=== PATIENT | male | born 1950 | race Caucasian/White ===

== ENCOUNTER 2018-06-08 15:00 | Inpatient (IN) | payer MEDICARE, OTHER ==
[2018-06-08] MEDS ORDERED: Piperacillin/Tazobactam 4.5 GM VIAL ONE (15:20)
[2018-06-08] MEDS ORDERED: Lidocaine 1% w/Epinephrine 1:100K 20 ML VIAL ONE (15:29)
[2018-06-08] MEDS ORDERED: Haloperidol Lactate 5 MG/ML VIAL ONE (15:40)
[2018-06-08] MEDS ORDERED: Vancomycin HCl 1.5 GM in Sodium Chloride 0.9% 250 ML 300 ML IVPB SCH (15:45)
[2018-06-08] MEDS ORDERED: Ziprasidone 20 MG VIAL ONE (16:26)
[2018-06-08] MEDS ORDERED: Bisacodyl 5 MG TAB PO PRN (17:47)
[2018-06-08] MEDS ORDERED: Nitroglycerin 0.4 MG TAB (25 Tab Bottle) SL PRN (17:47)
[2018-06-08] MEDS ORDERED: hydrALAZINE 20 MG/ML VIAL SLOW IVP PRN (17:47)
[2018-06-08] MEDS ORDERED: Acetaminophen 325 MG TAB PO PRN (17:47)
[2018-06-08] MEDS ORDERED: Senokot S 8.6-50 MG TAB PO PRN (17:47)
[2018-06-08] MEDS ORDERED: Calcium Carbonate 500 MG ChewTAB PO PRN (17:47)
[2018-06-08] MEDS ORDERED: Diabetic Tussin 200 MG/10 ML UDCUP PO PRN (17:47)
[2018-06-08] MEDS ORDERED: Benzonatate 100 MG CAP PO PRN (17:47)
[2018-06-08] MEDS ORDERED: Ondansetron PF 4 MG/2 ML Vial IVP PRN (17:47)
[2018-06-08] MEDS ORDERED: cloNIDine 0.1 MG TAB PO PRN (17:47)
[2018-06-08] MEDS ORDERED: Acetaminophen 650 MG Suppository PR PRN (17:47)
[2018-06-08] MEDS ORDERED: Sterile Water 10 ML VIAL FS PRN (18:12)
[2018-06-08] MEDS ORDERED: Dextrose 50% Abboject 50 ML SYRINGE SLOW IVP PRN (18:13)
[2018-06-08] MEDS ORDERED: HumaLOG 300 UNITS/3 ML VIAL SC PRN (18:13)
[2018-06-08] MEDS ORDERED: Dextrose 5% in Water 1,000 ML IV PRN (18:13)
[2018-06-08] MEDS ORDERED: Morphine 2 MG/ML SYRINGE SLOW IVP PRN (18:28)
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
[2018-06-08] MEDS: Sodium Chloride 0.9% 1,000 ML IV SCH (20:03)
[2018-06-08] MEDS ORDERED: VANCOMYCIN IVPB PRN (20:12)
--- NOTE | 2018-06-08 20:33 | OP ---
DATE OF PROCEDURE: 06/08/2018 PREOPERATIVE DIAGNOSIS: Large abdominal wall abscess (CAT scan reveals normal intraabdominal contents). POSTOPERATIVE DIAGNOSIS: Large abdominal wall abscess (CAT scan reveals normal intraabdominal contents). PROCEDURES PERFORMED: Incision and drainage of large abdominal wall abscess, right lower quadrant, 6 cm incision. Copious amounts of foul-smelling purulent material sent and culture submitted. ANESTHESIA: 1% Xylocaine with epinephrine. DESCRIPTION OF PROCEDURE: The patient at bedside, the right lower quadrant was clipped of hair, prepared with ChloraPrep, and local anesthetic was infiltrated into the skin and subcutaneous tissue, and a 6 cm incision made, carried down to skin and subcutaneous tissue, draining an abundant amount of purulent material. The patient had to be restrained by multiple nurses and help and aides in the emergency room. This wound was evacuated. Hemostasis was obtained with 4-0 Vicryl suture. Good hemostasis noted. Wound washed and gauze dressing applied. The patient tolerated the procedure well. Job ID: [id number]
[2018-06-08] MEDS: Piperacillin/Tazobactam 3.375 GM in Sodium Chloride 0.9% 100 ML IVPB SCH (20:36)
[2018-06-08] MEDS: Famotidine/PF 20 mg/2ml Vial SLOW IVP SCH (20:36)
--- NOTE | 2018-06-08 20:41 | HP ---
HISTORY OF PRESENT ILLNESS: Ej Henning is a 68-year-old male transferred to this facility by ambulance. He is noted to have dementia, undocumented report is that perhaps a neighbor dropped him off at the referring hospital. Undocumented report is that the patient lives at home independently. The patient is confused. He has been uncooperative and cursing. He is combative. He is noted to have a large right lower quadrant abdominal abscess. Initially, when I arrived in the emergency room, he was more cooperative. He did undergo a CAT scan of the abdomen and pelvis and brain revealing a large abscess of 8.5 x 7.5 x 4.5 cm in the right lower quadrant abdominal wall with intraabdominal contents were normal. CT scan of his brain was unremarkable. Home medications are unknown. The patient is not a good historian, he cannot give any past history. The patient is confused. He speaks intelligently, intelligible words, but he does not follow commands and will not give a history. PAST MEDICAL HISTORY: History is not known. Currently is transfer from [place]. PHYSICAL EXAMINATION: VITAL SIGNS: Blood pressure 114/76, 85, 18, 98.1 degrees. HEAD, EARS, EYES, NOSE, AND THROAT: Unremarkable. LUNGS: Clear to auscultation. CARDIAC: Regular rate and rhythm without murmur or gallop. ABDOMEN: Soft, closed bowel sounds, large, nondistended. No masses. He has a large abscess in his right lower quadrant consistent with CAT scan measurements. Surrounding cellulitis is very indurated. EXTREMITIES: Unremarkable. LABORATORY DATA: White count 11, hemoglobin 15. Basic metabolic profile normal. BUN 48, creatinine is 1.76, and glucose 280. ASSESSMENT AND PLAN: 1. Abdominal abscess. We will plan bedside drainage. Indicated medical procedures in the emergency room is documented and the patient is unable to give consent. 2. Probably diabetes. Admit to Medical, Wound Care consult for wound care, wet-to-dry dressings, wound VAC as per Wound Care discretion. Treatment per Medical. Job ID: [id number]
[2018-06-08] MEDS ORDERED: Vancomycin HCl 1 GM in Premix Bag 1 BAG IVPB SCH (21:00)
[2018-06-08] MEDS ORDERED: Prevnar 13-Val Conj/PF 0.5 ML SYRINGE IM ONE (21:00)
[2018-06-08] MEDS: metroNIDAZOLE 500 MG in Premix Bag 1 BAG IVPB SCH (21:38)
[2018-06-08 22:11] VITALS: BMI 28.3
[2018-06-09] MEDS: Piperacillin/Tazobactam 3.375 GM in Sodium Chloride 0.9% 100 ML IVPB SCH ×4 (02:49→20:06)
[2018-06-09] MEDS: metroNIDAZOLE 500 MG in Premix Bag 1 BAG IVPB SCH ×3 (05:21→21:12)
[2018-06-09 06:38] LABS: #Eosinphils 0.1 thou/uL (0.0-0.7); #Lymphocytes 0.9 thou/uL (1.20-3.40); #Monocytes 0.8 thou/uL (0.11-0.59); %Basophils 0.6 % (0.0-1.0); %Eosinophils 1.2 % (0.0-10.0); %Lymphocytes 11.1 % (21.0-51.0); %Monocytes 10.3 % (0.0-10.0); %Neutrophils 76.8 % (42.0-75.0); Hemoglobin 13.5 g/dL (14.0-18.0); Mean Corpuscular HGB CONC 33.9 g/dL (32.0-36.0); Mean Corpuscular Hemoglobin 32.2 pg (27.0-31.0); Platelet Count 165 thou/uL (130-400); RBC Distribution Width 11.5 % (11.5-14.5); White Blood Cell (WBC) Count 7.9 thou/uL (4.8-10.8)
[2018-06-09 06:54] LABS: Anion Gap 12 mmol/L (10-20); BUN (Urea Nitrogen) 28 mg/dL (8.4-25.7); Calc. Creatinine Clearance 65 mL/min (70-130); Calcium 8.9 mg/dL (7.8-10.44); Carbon Dioxide 23 mmol/L (23-31); Chloride 109 mmol/L (98-107); Estimated GFR-MDRD 60; Glucose 207 mg/dL (80-115); Sodium 140 mmol/L (136-145)
[2018-06-09] MEDS: Enoxaparin Sodium 40 MG/0.4 ML SYRINGE SC SCH (08:26)
[2018-06-09] MEDS: Famotidine/PF 20 mg/2ml Vial SLOW IVP SCH ×2 (08:26→20:06)
[2018-06-09] MEDS: Saccharomyces boulardii 250 MG CAP PO SCH (08:27)
[2018-06-09] MEDS: Sodium Chloride 0.9% 1,000 ML IV SCH ×2 (08:27→20:07)
[2018-06-09] MEDS: HumaLOG 300 UNITS/3 ML VIAL SC PRN (12:07)
[2018-06-09] MEDS: Vancomycin HCl 750 MG in Sodium Chloride 0.9% 250 ML 250 ML IVPB SCH ×2 (12:07→23:48)
--- NOTE | 2018-06-09 12:24 | PDOC.PN ---
- Subjective Encounter Start Date: 06/09/18 Encounter Start Time: 12:23 Subjective: more awake today.sitter at bedside. -: thinks he is 48 yr old & lives w his mother -: denies any pain/discomfort - Objective MAR Reviewed: Yes Vital Signs & Weight: Vital Signs (12 hours) Temp Pulse Resp BP Pulse Ox 06/09/18 11:58 98.2 F 81 16 114/67 96 06/09/18 08:00 95 06/09/18 07:56 98.1 F 73 18 142/74 H 95 06/09/18 04:00 97.6 F 82 18 119/64 99 Weight Weight 175 lb 7 oz I&O: 06/08/18 06/09/18 06/10/18 06:59 06:59 06:59 Intake Total 764 Balance 764 Result Diagrams: 06/09/18 06:19 06/09/18 06:19 Additional Labs: Accuchecks 06/09/18 06/08/18 06:04 20:51 POC Glucose 189 H 206 H Microbiology 06/08/18 15:27 Venous blood - Right Hand Blood Culture - Preliminary Specimen has been received and culture in progress. No Growth to date. 06/08/18 15:27 Venous blood - Left Arm Blood Culture - Preliminary Specimen has been received and culture in progress. No Growth to date. Laboratory Tests 06/08/18 06/08/18 06/08/18 11:26 11:26 15:27 Creatinine 1.76 H Lactic Acid 1.0 1.1 06/09/18 06:19 Creatinine 1.19 Lactic Acid Phys Exam - Physical Examination Constitutional: NAD HEENT: PERRLA, moist MMs, sclera anicteric, oral pharynx no lesions Neck: no nodes, no JVD, supple, full ROM Respiratory: no wheezing, no rales, no rhonchi, clear to auscultation bilateral Cardiovascular: RRR, no significant murmur Gastrointestinal: soft, non-tender, no distention, positive bowel sounds Musculoskeletal: no edema, pulses present Neurological: non-focal, normal sensation, moves all 4 limbs Dx/Plan (1) Abdominal wall abscess Code(s): L02.211 - CUTANEOUS ABSCESS OF ABDOMINAL WALL Status: Acute Comment : s/p I&D in ER.on IV ABx (2) DM2 (diabetes mellitus, type 2) Status: Chronic (3) HTN (hypertension) Code(s): I10 - ESSENTIAL (PRIMARY) HYPERTENSION Status: Chronic (4) Alzheimer's dementia with behavioral disturbance Code(s): G30.9 - ALZHEIMER'S DISEASE, UNSPECIFIED; F02.81 - DEMENTIA IN OTH DISEASES CLASSD ELSWHR W BEHAVIORAL DISTURB Status: Chronic - Plan continue antibiotics, PT/OT, out of bed/ambulate, DVT proph w/SCDs HD stable.cont empiric ABx. -: ID recs requested for DC ABx . -: will need placement d/t advanced dementia & inability to care for himself -: minimize narcotics & sedatives -: home meds not available.cont PRN ISS,antihypertensives * . Review of Systems - Review of Systems Constitutional: negative: fever, chills, sweats, weakness, malaise, other Cardiovascular: negative: chest pain, palpitations, orthopnea, paroxysmal nocturnal dyspnea, edema, light headedness, other Gastrointestinal: negative: Nausea, Vomiting, Abdominal Pain, Diarrhea, Constipation, Melena, Hematochezia, Other Genitourinary: negative: Dysuria, Frequency, Incontinence, Hematuria, Retention , Other Neurological: negative: Weakness, Numbness, Incoordination, Change in Speech, Confusion, Seizures, Other - Medications/Allergies Allergies/Adverse Reactions: Allergies Allergy/AdvReac Type Severity Reaction Status Date / Time No Known Allergies Allergy Unverified 06/08/18 15:34 Medications: Current Medications Acetaminophen (Tylenol) 650 mg PO Q4H PRN PRN Reason: Headache/Fever/Mild Pain (1-3) Acetaminophen (Tylenol) 650 mg MD Q4H PRN PRN Reason: Headache/Fever/Mild Pain (1-3) Benzonatate (Tessalon) 100 mg PO Q6H PRN PRN Reason: Cough Bisacodyl (Dulcolax) 10 mg PO DAILYPRN PRN PRN Reason: Constipation Calcium Carbonate (Tums) 1,000 mg PO Q4H PRN PRN Reason: Heartburn or Indigestion Clonidine (Catapres) 0.1 mg PO Q4H PRN PRN Reason: SBP > 160____ Dextrose/Water (Dextrose 50%) 25 gm SLOW IVP PRN PRN PRN Reason: Hypoglycemia Enoxaparin Sodium (Lovenox) 40 mg SC 0900 [facility] Last Admin: 06/09/18 08:26 Dose: 40 mg Famotidine (Pepcid) 20 mg SLOW IVP Q12HR [facility] Last Admin: 06/09/18 08:26 Dose: 20 mg Glucagon (Glucagon) 1 mg IM PRN PRN PRN Reason: Hypoglycemia Guaifenesin (Robitussin Sf) 200 mg PO Q4H PRN PRN Reason: Cough Hydralazine HCl (Apresoline) 10 mg SLOW IVP Q4H PRN PRN Reason: SBP > 180 and HR < 70 Metronidazole 500 mg/ Device 100 mls @ 100 mls/hr IVPB Q8HR [facility] Last Admin: 06/09/18 05:21 Dose: 100 mls Piperacillin Sod/Tazobactam (Sod 3.375 gm/ Sodium Chloride) 100 mls @ 200 mls/ hr IVPB 0300,0900,1500,2100 [facility] Last Admin: 06/09/18 08:27 Dose: 100 mls Dextrose/Water (D5w) 1,000 mls @ 0 mls/hr IV .Q0M PRN PRN Reason: Hypoglycemia Sodium Chloride (Normal Saline 0.9%) 1,000 mls @ 75 mls/hr IV .[id number] [facility] Last Admin: 06/09/18 08:27 Dose: 1,000 mls Vancomycin HCl 750 mg/ Sodium (Chloride) 250 mls @ 250 mls/hr IVPB 1200,2359 [facility] Insulin Human Lispro (Humalog) 0 units SC .MODERATE SLIDING SC PRN PRN Reason: Moderate Correctional Scale Insulin Human Lispro (Humalog) 0 units SC .BEDTIME SLIDING SC PRN PRN Reason: Bedtime Correctional Scale Miscellaneous Medication (Pharmacy To Dose) 1 each IVPB PRN PRN PRN Reason: SSSI Morphine Sulfate (Morphine) 2 mg SLOW IVP Q4H PRN PRN Reason: Severe Pain (7-10) Nitroglycerin (Nitrostat) 0.4 mg SL Q5MIN PRN PRN Reason: Chest Pain Ondansetron HCl (Zofran) 4 mg IVP Q6H PRN PRN Reason: Nausea/Vomiting Saccharomyces Boulardii (Florastor) 250 mg PO DAILY [facility] Last Admin: 06/09/18 08:27 Dose: 250 mg Senna/Docusate Sodium (Senokot S) 2 tab PO BIDPRN PRN PRN Reason: Constipation Sterile Water (Water For Injection) 1.2 ml FS Q4H PRN PRN Reason: GEODON RECONSTITUTION Ziprasidone (Geodon) 10 mg IM Q4H PRN PRN Reason: Agitation
[2018-06-09] MEDS ORDERED: Vancomycin HCl 750 MG in Sodium Chloride 0.9% 250 ML 250 ML IVPB SCH ×2 (18:00→20:00)
[2018-06-09] MEDS: Ziprasidone 20 MG VIAL IM PRN (18:00)
[2018-06-09] MEDS ORDERED: Lorazepam 2 MG/ML VIAL SLOW IVP SCH (18:30)
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
[2018-06-09] MEDS: traZODone HCl 50 MG TAB PO PRN (20:06)
[2018-06-10] MEDS: Piperacillin/Tazobactam 3.375 GM in Sodium Chloride 0.9% 100 ML IVPB SCH ×4 (02:59→21:19)
[2018-06-10] MEDS: metroNIDAZOLE 500 MG in Premix Bag 1 BAG IVPB SCH ×3 (05:12→22:28)
[2018-06-10] MEDS: HumaLOG 300 UNITS/3 ML VIAL SC PRN ×3 (05:13→17:35)
[2018-06-10] MEDS: Lisinopril 5 MG TAB PO SCH ×2 (09:27→21:20)
[2018-06-10] MEDS: Famotidine/PF 20 mg/2ml Vial SLOW IVP SCH ×2 (09:28→21:18)
[2018-06-10] MEDS: Saccharomyces boulardii 250 MG CAP PO SCH (09:28)
[2018-06-10] MEDS: Enoxaparin Sodium 40 MG/0.4 ML SYRINGE SC SCH (09:29)
[2018-06-10] MEDS: Insulin Glargine 10 UNITS in Pre-Filled Syringe 1 EACH SC SCH ×2 (09:30→21:20)
[2018-06-10 11:23] LABS: Vancomycin, Trough 10.7 ug/mL
--- NOTE | 2018-06-10 11:26 | PDOC.PN ---
- Subjective Encounter Start Date: 06/10/18 Encounter Start Time: 11:24 Subjective: does not remeberwherhe is or what is going on -: denies any discomfort/abd pain -: wound checkedw guest room inspector's help agiatedlast night requiring sedation - Objective Resuscitation Status - Order Detail: 06/09/18 13:04 Resuscitation Status Routine Resuscitation Status: DNAR: NO Resuscitation Discussed with: DNR form completed by (NICOLAS),pt has dementia MAR Reviewed: Yes Vital Signs & Weight: Vital Signs (12 hours) Temp Pulse Resp BP BP Pulse Ox 06/10/18 09:27 86 123/61 06/10/18 05:06 98.1 F 86 20 156/86 H 95 Weight Admit Weight 175 lb 7 oz Weight 175 lb 7 oz I&O: 06/09/18 06/10/18 06/11/18 06:59 06:59 06:59 Intake Total 764 936 Output Total 1650 Balance 764 -714 Result Diagrams: 06/09/18 06:19 06/09/18 06:19 Additional Labs: Accuchecks 06/10/18 06/09/18 06/09/18 05:10 20:14 16:48 POC Glucose 243 H 355 H 230 H Microbiology 06/08/18 15:27 Venous blood - Right Hand Blood Culture - Preliminary Specimen has been received and culture in progress. No Growth to date. 06/08/18 15:27 Venous blood - Left Arm Blood Culture - Preliminary Specimen has been received and culture in progress. No Growth to date. Laboratory Tests 10/02/17 06/08/18 06/09/18 08:22 11:26 06:19 BUN 31 H 48 H 28 H Creatinine 1.22 1.76 H 1.19 Phys Exam - Physical Examination Constitutional: NAD HEENT: PERRLA, moist MMs, sclera anicteric, oral pharynx no lesions Neck: no nodes, no JVD, supple, full ROM Respiratory: no wheezing, no rales, no rhonchi, clear to auscultation bilateral Cardiovascular: RRR, no significant murmur, no rub Gastrointestinal: soft, non-tender, no distention, positive bowel sounds abd wound w underlying healthy tissue.surrounding erythema less Musculoskeletal: no edema, pulses present Neurological: non-focal, normal sensation, moves all 4 limbs Psychiatric: normal affect Dx/Plan (1) Abdominal wall abscess Code(s): L02.211 - CUTANEOUS ABSCESS OF ABDOMINAL WALL Status: Acute Comment : s/p I&D in ER.on IV ABx (2) DM2 (diabetes mellitus, type 2) Status: Chronic (3) HTN (hypertension) Code(s): I10 - ESSENTIAL (PRIMARY) HYPERTENSION Status: Chronic (4) Alzheimer's dementia with behavioral disturbance Code(s): G30.9 - ALZHEIMER'S DISEASE, UNSPECIFIED; F02.81 - DEMENTIA IN OTH DISEASES CLASSD ELSWHR W BEHAVIORAL DISTURB Status: Chronic - Plan PT/OT, DVT proph w/SCDs contABx.follow Cxand IDrecs.appreciate help -: Needs placement -: HD stable. -: addLantus d/t high BS -: addNorvasc d/t HTN.home meds unknown * . Review of Systems - Review of Systems Constitutional: negative: fever, chills, sweats, weakness, malaise, other Gastrointestinal: negative: Nausea, Vomiting, Abdominal Pain, Diarrhea, Constipation, Melena, Hematochezia, Other Genitourinary: negative: Dysuria, Frequency, Incontinence, Hematuria, Retention , Other Neurological: negative: Weakness, Numbness, Incoordination, Change in Speech, Confusion, Seizures, Other Other: unreliable due to dementia - Medications/Allergies Allergies/Adverse Reactions: Allergies Allergy/AdvReac Type Severity Reaction Status Date / Time No Known Allergies Allergy Unverified 06/08/18 15:34 Medications: Current Medications Acetaminophen (Tylenol) 650 mg PO Q4H PRN PRN Reason: Headache/Fever/Mild Pain (1-3) Acetaminophen (Tylenol) 650 mg MN Q4H PRN PRN Reason: Headache/Fever/Mild Pain (1-3) Benzonatate (Tessalon) 100 mg PO Q6H PRN PRN Reason: Cough Bisacodyl (Dulcolax) 10 mg PO DAILYPRN PRN PRN Reason: Constipation Calcium Carbonate (Tums) 1,000 mg PO Q4H PRN PRN Reason: Heartburn or Indigestion Clonidine (Catapres) 0.1 mg PO Q4H PRN PRN Reason: SBP > 160____ Dextrose/Water (Dextrose 50%) 25 gm SLOW IVP PRN PRN PRN Reason: Hypoglycemia Enoxaparin Sodium (Lovenox) 40 mg SC 0900 [facility] Last Admin: 06/10/18 09:29 Dose: 40 mg Famotidine (Pepcid) 20 mg SLOW IVP Q12HR [facility] Last Admin: 06/10/18 09:28 Dose: 20 mg Glucagon (Glucagon) 1 mg IM PRN PRN PRN Reason: Hypoglycemia Guaifenesin (Robitussin Sf) 200 mg PO Q4H PRN PRN Reason: Cough Hydralazine HCl (Apresoline) 10 mg SLOW IVP Q4H PRN PRN Reason: SBP > 180 and HR < 70 Metronidazole 500 mg/ Device 100 mls @ 100 mls/hr IVPB Q8HR [facility] Last Admin: 06/10/18 05:12 Dose: 100 mls Piperacillin Sod/Tazobactam (Sod 3.375 gm/ Sodium Chloride) 100 mls @ 200 mls/ hr IVPB 0300,0900,1500,2100 [facility] Last Admin: 06/10/18 09:28 Dose: 100 mls Dextrose/Water (D5w) 1,000 mls @ 0 mls/hr IV .Q0M PRN PRN Reason: Hypoglycemia Sodium Chloride (Normal Saline 0.9%) 1,000 mls @ 75 mls/hr IV .[id number] [facility] Last Admin: 06/09/18 20:07 Dose: Not Given Vancomycin HCl 750 mg/ Sodium (Chloride) 250 mls @ 250 mls/hr IVPB 1200,2359 [facility] Last Admin: 06/09/18 23:48 Dose: 250 mls Insulin Glargine 10 units/ (Miscellaneous Medication) 0.1 mls @ 0 mls/hr SC HS [facility] Insulin Glargine 10 units/ (Miscellaneous Medication) 0.1 mls @ 0 mls/hr SC QAM [facility] Last Admin: 06/10/18 09:30 Dose: 0.1 mls Insulin Human Lispro (Humalog) 0 units SC .MODERATE SLIDING SC PRN PRN Reason: Moderate Correctional Scale Last Admin: 06/10/18 05:13 Dose: 4 unit Insulin Human Lispro (Humalog) 0 units SC .BEDTIME SLIDING SC PRN PRN Reason: Bedtime Correctional Scale Last Admin: 06/09/18 20:15 Dose: 5 unit Lisinopril (Zestril) 5 mg PO BID [facility] Last Admin: 06/10/18 09:27 Dose: 5 mg Miscellaneous Medication (Pharmacy To Dose) 1 each IVPB PRN PRN PRN Reason: SSSI Morphine Sulfate (Morphine) 2 mg SLOW IVP Q4H PRN PRN Reason: Severe Pain (7-10) Nitroglycerin (Nitrostat) 0.4 mg SL Q5MIN PRN PRN Reason: Chest Pain Ondansetron HCl (Zofran) 4 mg IVP Q6H PRN PRN Reason: Nausea/Vomiting Saccharomyces Boulardii (Florastor) 250 mg PO DAILY [facility] Last Admin: 06/10/18 09:28 Dose: 250 mg Senna/Docusate Sodium (Senokot S) 2 tab PO BIDPRN PRN PRN Reason: Constipation Sodium Chloride (Flush - Normal Saline) 10 ml IVF PRN PRN PRN Reason: Saline Flush Sterile Water (Water For Injection) 1.2 ml FS Q4H PRN PRN Reason: GEODON RECONSTITUTION Trazodone HCl (Desyrel) 50 mg PO HSPRN PRN PRN Reason: Insomnia Last Admin: 06/09/18 20:06 Dose: 50 mg Ziprasidone (Geodon) 10 mg IM Q4H PRN PRN Reason: Agitation Last Admin: 06/09/18 18:00 Dose: 10 mg
[2018-06-10] MEDS: Vancomycin HCl 750 MG in Sodium Chloride 0.9% 250 ML 250 ML IVPB SCH (11:44)
[2018-06-10] MEDS: Sodium Chloride 0.9% 1,000 ML IV SCH (16:07)
[2018-06-10] MEDS: traZODone HCl 50 MG TAB PO PRN (21:20)
[2018-06-11] MEDS: Vancomycin HCl 1 GM in Premix Bag 1 BAG IVPB SCH ×3 (00:02→23:13)
[2018-06-11] MEDS: Sodium Chloride 0.9% 1,000 ML IV SCH ×2 (00:04→14:53)
[2018-06-11] MEDS: Piperacillin/Tazobactam 3.375 GM in Sodium Chloride 0.9% 100 ML IVPB SCH ×4 (02:57→20:56)
[2018-06-11] MEDS: metroNIDAZOLE 500 MG in Premix Bag 1 BAG IVPB SCH ×3 (04:51→21:22)
[2018-06-11] MEDS: HumaLOG 300 UNITS/3 ML VIAL SC PRN ×2 (05:08→12:00)
[2018-06-11] MEDS: Famotidine/PF 20 mg/2ml Vial SLOW IVP SCH ×2 (08:26→20:56)
[2018-06-11] MEDS: Insulin Glargine 10 UNITS in Pre-Filled Syringe 1 EACH SC SCH ×2 (08:26→20:57)
[2018-06-11] MEDS: Enoxaparin Sodium 40 MG/0.4 ML SYRINGE SC SCH (08:26)
[2018-06-11] MEDS: Lisinopril 5 MG TAB PO SCH ×2 (08:27→20:56)
[2018-06-11] MEDS: Saccharomyces boulardii 250 MG CAP PO SCH (08:27)
[2018-06-11 09:32] LABS: Anion Gap 12 mmol/L (10-20); BUN (Urea Nitrogen) 13 mg/dL (8.4-25.7); Calc. Creatinine Clearance 67 mL/min (70-130); Carbon Dioxide 25 mmol/L (23-31); Chloride 110 mmol/L (98-107); Estimated GFR-MDRD 62; Glucose 162 mg/dL (80-115); Potassium 3.9 mmol/L (3.5-5.1); Sodium 143 mmol/L (136-145)
--- NOTE | 2018-06-11 11:41 | PDOC.PN ---
- Subjective Encounter Start Date: 06/11/18 Encounter Start Time: 11:39 Subjective: feels well. sitter at bedside.reports that he is eating well & ambulating -: 2 BMs this morning -: care discussed w Coy ([facility]) Ms Combs on phone - Objective Resuscitation Status - Order Detail: 06/09/18 13:04 Resuscitation Status Routine Resuscitation Status: DNAR: NO Resuscitation Discussed with: DNR form completed by (NICOLAS),pt has dementia MAR Reviewed: Yes Vital Signs & Weight: Vital Signs (12 hours) Temp Pulse Resp BP Pulse Ox 06/11/18 08:27 76 06/11/18 05:00 97.2 F L 76 21 H 115/69 97 Weight Admit Weight 175 lb 7 oz Weight 175 lb 7 oz I&O: 06/10/18 06/11/18 06/12/18 06:59 06:59 06:59 Intake Total 936 2807 Output Total 1650 Balance -714 2807 Result Diagrams: 06/09/18 06:19 06/11/18 07:11 Additional Labs: Accuchecks 06/11/18 06/10/18 06/10/18 05:05 21:11 16:56 POC Glucose 181 H 131 H 222 H Microbiology 06/08/18 15:27 Venous blood - Right Hand Blood Culture - Preliminary NO GROWTH AT 48 HOURS 06/08/18 15:27 Venous blood - Left Arm Blood Culture - Preliminary NO GROWTH AT 48 HOURS Laboratory Tests 06/08/18 06/09/18 06/09/18 20:51 06:04 16:48 POC Glucose 206 H 189 H 230 H 06/10/18 06/10/18 06/10/18 05:10 16:56 21:11 POC Glucose 243 H 222 H 131 H 06/11/18 05:05 POC Glucose 181 H Phys Exam - Physical Examination Constitutional: NAD cheerful.forgetful HEENT: PERRLA, moist MMs, sclera anicteric, oral pharynx no lesions Neck: no nodes, no JVD, supple, full ROM Respiratory: no wheezing, no rales, no rhonchi Cardiovascular: RRR, no significant murmur Gastrointestinal: soft, non-tender, no distention, positive bowel sounds Wound erythema & induration has much improved Musculoskeletal: no edema, pulses present Neurological: non-focal, normal sensation, moves all 4 limbs Psychiatric: normal affect Dx/Plan (1) Abdominal wall abscess Code(s): L02.211 - CUTANEOUS ABSCESS OF ABDOMINAL WALL Status: Acute Comment : s/p I&D in ER.on IV ABx (2) DM2 (diabetes mellitus, type 2) Status: Chronic (3) HTN (hypertension) Code(s): I10 - ESSENTIAL (PRIMARY) HYPERTENSION Status: Chronic (4) Alzheimer's dementia with behavioral disturbance Code(s): G30.9 - ALZHEIMER'S DISEASE, UNSPECIFIED; F02.81 - DEMENTIA IN OTH DISEASES CLASSD ELSWHR W BEHAVIORAL DISTURB Status: Chronic - Plan continue antibiotics, PT/OT, out of bed/ambulate, DVT proph w/SCDs cont empric ABx. ID also following.Following Cx results-none from wound I&D -: HD stable -: Requested Family to fax over home meds.will need to start demnetia meds to -: prevent sun downing.Using Geodon for now. -: BP & Blood Sugar better after starting lisinopril & lantus. monitor * . Review of Systems - Review of Systems Constitutional: negative: fever, chills, sweats, weakness, malaise, other Respiratory: negative: Cough, Dry, Shortness of Breath, Hemoptysis, SOB with Excertion, Pleuritic Pain, Sputum, Wheezing Cardiovascular: negative: chest pain, palpitations, orthopnea, paroxysmal nocturnal dyspnea, edema, light headedness, other Gastrointestinal: negative: Nausea, Vomiting, Abdominal Pain, Diarrhea, Constipation, Melena, Hematochezia, Other Genitourinary: negative: Dysuria, Frequency, Incontinence, Hematuria, Retention , Other Neurological: negative: Weakness, Numbness, Incoordination, Change in Speech, Confusion, Seizures, Other - Medications/Allergies Allergies/Adverse Reactions: Allergies Allergy/AdvReac Type Severity Reaction Status Date / Time No Known Allergies Allergy Unverified 06/08/18 15:34 Medications: Current Medications Acetaminophen (Tylenol) 650 mg PO Q4H PRN PRN Reason: Headache/Fever/Mild Pain (1-3) Acetaminophen (Tylenol) 650 mg OR Q4H PRN PRN Reason: Headache/Fever/Mild Pain (1-3) Benzonatate (Tessalon) 100 mg PO Q6H PRN PRN Reason: Cough Bisacodyl (Dulcolax) 10 mg PO DAILYPRN PRN PRN Reason: Constipation Calcium Carbonate (Tums) 1,000 mg PO Q4H PRN PRN Reason: Heartburn or Indigestion Clonidine (Catapres) 0.1 mg PO Q4H PRN PRN Reason: SBP > 160____ Dextrose/Water (Dextrose 50%) 25 gm SLOW IVP PRN PRN PRN Reason: Hypoglycemia Enoxaparin Sodium (Lovenox) 40 mg SC 0900 [facility] Last Admin: 06/11/18 08:26 Dose: 40 mg Famotidine (Pepcid) 20 mg SLOW IVP Q12HR [facility] Last Admin: 06/11/18 08:26 Dose: 20 mg Glucagon (Glucagon) 1 mg IM PRN PRN PRN Reason: Hypoglycemia Guaifenesin (Robitussin Sf) 200 mg PO Q4H PRN PRN Reason: Cough Hydralazine HCl (Apresoline) 10 mg SLOW IVP Q4H PRN PRN Reason: SBP > 180 and HR < 70 Metronidazole 500 mg/ Device 100 mls @ 100 mls/hr IVPB Q8HR [facility] Last Admin: 06/11/18 04:51 Dose: 100 mls Piperacillin Sod/Tazobactam (Sod 3.375 gm/ Sodium Chloride) 100 mls @ 200 mls/ hr IVPB 0300,0900,1500,2100 [facility] Last Admin: 06/11/18 08:27 Dose: 100 mls Dextrose/Water (D5w) 1,000 mls @ 0 mls/hr IV .Q0M PRN PRN Reason: Hypoglycemia Sodium Chloride (Normal Saline 0.9%) 1,000 mls @ 75 mls/hr IV .[id number] [facility] Last Admin: 06/11/18 00:04 Dose: Not Given Insulin Glargine 10 units/ (Miscellaneous Medication) 0.1 mls @ 0 mls/hr SC HS [facility] Last Admin: 06/10/18 21:20 Dose: 0.1 mls Insulin Glargine 10 units/ (Miscellaneous Medication) 0.1 mls @ 0 mls/hr SC QAM [facility] Last Admin: 06/11/18 08:26 Dose: 0.1 mls Vancomycin HCl 1 gm/ Device 200 mls @ 200 mls/hr IVPB 1200,2359 [facility] Last Admin: 06/11/18 00:02 Dose: 200 mls Insulin Human Lispro (Humalog) 0 units SC .MODERATE SLIDING SC PRN PRN Reason: Moderate Correctional Scale Last Admin: 06/11/18 05:08 Dose: 2 unit Insulin Human Lispro (Humalog) 0 units SC .BEDTIME SLIDING SC PRN PRN Reason: Bedtime Correctional Scale Last Admin: 06/09/18 20:15 Dose: 5 unit Lisinopril (Zestril) 5 mg PO BID [facility] Last Admin: 06/11/18 08:27 Dose: 5 mg Miscellaneous Medication (Pharmacy To Dose) 1 each IVPB PRN PRN PRN Reason: SSSI Morphine Sulfate (Morphine) 2 mg SLOW IVP Q4H PRN PRN Reason: Severe Pain (7-10) Nitroglycerin (Nitrostat) 0.4 mg SL Q5MIN PRN PRN Reason: Chest Pain Ondansetron HCl (Zofran) 4 mg IVP Q6H PRN PRN Reason: Nausea/Vomiting Saccharomyces Boulardii (Florastor) 250 mg PO DAILY [facility] Last Admin: 06/11/18 08:27 Dose: 250 mg Senna/Docusate Sodium (Senokot S) 2 tab PO BIDPRN PRN PRN Reason: Constipation Sodium Chloride (Flush - Normal Saline) 10 ml IVF PRN PRN PRN Reason: Saline Flush Sterile Water (Water For Injection) 1.2 ml FS Q4H PRN PRN Reason: GEODON RECONSTITUTION Trazodone HCl (Desyrel) 50 mg PO HSPRN PRN PRN Reason: Insomnia Last Admin: 06/10/18 21:20 Dose: 50 mg Ziprasidone (Geodon) 10 mg IM Q4H PRN PRN Reason: Agitation Last Admin: 06/09/18 18:00 Dose: 10 mg
--- NOTE | 2018-06-11 14:33 | PRG ---
DATE OF SERVICE: 06/11/2018 SUBJECTIVE: Mr. Henning is doing well. 138/73. He has baseline confusion from his dementia. His abdominal wound is granulating healthy. There is no cellulitis. Overall, the patient is doing well. He could be placed on oral antibiotics for his abdominal wall abscess. Discharge status per medical. With severe Alzheimer disease, he probably need to be discharged to outpatient care facility and I do not think that the patient can care for himself at home. Job ID: [id number]
[2018-06-11] MEDS: Ziprasidone 20 MG VIAL IM PRN (17:55)
--- NOTE | 2018-06-11 23:33 | PRG ---
DATE OF SERVICE: 06/11/2018 SUBJECTIVE: The patient is still with marked cognitive impairment as noted previously associated with his Alzheimer disease. He does not appear in distress. He has had some intermittent loose stool noticeable. OBJECTIVE: VITAL SIGNS: T-max 98.2, blood pressure 150/90, pulse 65. GENERAL: Awake, disoriented. Does not appear agitated. LUNGS: Clear. HEART: S1 and S2. Regular rate. ABDOMEN: Soft, not distended. The abdominal wound is packed. The degree of inflammatory changes surrounding the opening is much less than previously. There is still moderate induration. GENITOURINARY: The patient is voiding in a urinal. LABORATORY DATA: White cell count is 7.9, hemoglobin 13. Creatinine is 1.16. Microbiology negative for blood cultures thus far. ASSESSMENT AND DISCUSSION: Dementia with behavioral abnormalities and an inflammatory process in right lower abdominal wall. Unfortunately, cultures were not submitted and we are not currently able to target any particular organism. In this case, the most likely scenario is a staphylococcal infection, but we will have to broaden the spectrum, assuming Gram-negatives and anaerobes as well. He is currently receiving vancomycin and Zosyn and could eventually transition to a combination of oral doxycycline, ciprofloxacin or clindamycin and ciprofloxacin for discharge planning. Job ID: [id number]
[2018-06-12] MEDS: Piperacillin/Tazobactam 3.375 GM in Sodium Chloride 0.9% 100 ML IVPB SCH ×3 (02:26→13:41)
[2018-06-12] MEDS: Sodium Chloride 0.9% 1,000 ML IV SCH ×2 (05:21→13:41)
[2018-06-12] MEDS: metroNIDAZOLE 500 MG in Premix Bag 1 BAG IVPB SCH ×2 (05:21→13:40)
[2018-06-12] MEDS: HumaLOG 300 UNITS/3 ML VIAL SC PRN (06:29)
[2018-06-12] MEDS: Lisinopril 5 MG TAB PO SCH ×2 (08:23→19:51)
[2018-06-12] MEDS: Enoxaparin Sodium 40 MG/0.4 ML SYRINGE SC SCH (08:23)
[2018-06-12] MEDS: Insulin Glargine 10 UNITS in Pre-Filled Syringe 1 EACH SC SCH ×2 (08:23→22:25)
[2018-06-12] MEDS: Famotidine/PF 20 mg/2ml Vial SLOW IVP SCH ×2 (08:23→19:51)
[2018-06-12] MEDS: Saccharomyces boulardii 250 MG CAP PO SCH (08:24)
[2018-06-12 11:39] LABS: Vancomycin, Trough 16.8 ug/mL
[2018-06-12] MEDS: Vancomycin HCl 1 GM in Premix Bag 1 BAG IVPB SCH (13:40)
[2018-06-12] MEDS: Lorazepam 2 MG/ML VIAL SLOW IVP PRN ×2 (15:47→21:13)
--- NOTE | 2018-06-12 16:46 | PDOC.PN ---
- Subjective Encounter Start Date: 06/12/18 Encounter Start Time: 12:10 Mr. Henning was seen today in follow-up of abdominal wall abscess. He does not have any complaints this afternoon. - Objective Resuscitation Status - Order Detail: 06/09/18 13:04 Resuscitation Status Routine Resuscitation Status: DNAR: NO Resuscitation Discussed with: DNR form completed by (NICOLAS),pt has dementia MAR Reviewed: Yes Vital Signs & Weight: Vital Signs (12 hours) Temp Pulse Resp BP Pulse Ox 06/12/18 07:24 98.0 F 61 16 137/75 96 Weight Admit Weight 175 lb 7 oz Weight 175 lb 7 oz I&O: 06/11/18 06/12/18 06/13/18 06:59 06:59 06:59 Intake Total 2807 1375 Output Total 1650 Balance 2807 -275 Result Diagrams: 06/09/18 06:19 06/11/18 07:11 Additional Labs: Accuchecks 06/12/18 06/12/18 06/11/18 11:34 06:29 19:44 POC Glucose 194 H 188 H 286 H 06/11/18 06/11/18 16:28 11:43 POC Glucose 164 H 226 H Phys Exam - Physical Examination HEENT: PERRLA Respiratory: no wheezing, no rales, no rhonchi Cardiovascular: RRR, no significant murmur, no rub Gastrointestinal: soft, non-tender, no distention, positive bowel sounds wound vac in place, no surrounding erythema, or induration Musculoskeletal: no edema, pulses present Dx/Plan (1) Abdominal wall abscess Code(s): L02.211 - CUTANEOUS ABSCESS OF ABDOMINAL WALL Status: Acute Comment : s/p I&D in ER.on IV ABx (2) Alzheimer's dementia with behavioral disturbance Code(s): G30.9 - ALZHEIMER'S DISEASE, UNSPECIFIED; F02.81 - DEMENTIA IN OTH DISEASES CLASSD ELSWHR W BEHAVIORAL DISTURB Status: Chronic (3) DM2 (diabetes mellitus, type 2) Status: Chronic (4) HTN (hypertension) Code(s): I10 - ESSENTIAL (PRIMARY) HYPERTENSION Status: Chronic - Plan * Abdominal wall abscess- he is s/p I&D of the area. ID recommendations noted- will transition him to oral antibiotics * Continue local wound care with wound vac * HTN- blood pressure is controlled * DM- blood glucose is stable * Patient is being screened for Inpatient Rehab.
[2018-06-12] MEDS: Ziprasidone 20 MG VIAL IM PRN (17:02)
[2018-06-12] MEDS: Clindamycin 150 MG CAP PO SCH (17:24)
[2018-06-12] MEDS: Ciprofloxacin 500 MG TAB PO SCH (19:51)
[2018-06-13] MEDS: Vancomycin HCl 1 GM in Premix Bag 1 BAG IVPB SCH ×2 (00:40→12:49)
[2018-06-13] MEDS: Clindamycin 150 MG CAP PO SCH ×3 (02:00→17:14)
[2018-06-13] MEDS: Ciprofloxacin 500 MG TAB PO SCH ×2 (06:16→21:37)
[2018-06-13] MEDS: Sodium Chloride 0.9% 1,000 ML IV SCH ×3 (06:16→21:35)
[2018-06-13] MEDS: HumaLOG 300 UNITS/3 ML VIAL SC PRN ×2 (06:45→12:48)
[2018-06-13] MEDS: Saccharomyces boulardii 250 MG CAP PO SCH (08:14)
[2018-06-13] MEDS: Lisinopril 5 MG TAB PO SCH ×2 (08:14→21:37)
[2018-06-13] MEDS: Insulin Glargine 10 UNITS in Pre-Filled Syringe 1 EACH SC SCH ×2 (08:15→21:38)
[2018-06-13] MEDS: Enoxaparin Sodium 40 MG/0.4 ML SYRINGE SC SCH (08:15)
[2018-06-13] MEDS: Famotidine/PF 20 mg/2ml Vial SLOW IVP SCH ×2 (08:15→21:37)
--- NOTE | 2018-06-13 10:49 | PQF ---
JUAN HICKEY TONI MD [id number] CLINICAL DOCUMENTATION IMPROVEMENT CLARIFICATION FORM: ICD-10 Updated PLEASE DO AN ADDENDUM TO THE PROGRESS NOTE WITH ANY DOCUMENTATION UPDATES OR ADDITIONS AND CARRY THROUGH TO DC SUMMARY. THANK YOU. DATE: ATTN: DR. FARA BRANHAM / DR. Alison DUARTE Please exercise your independent, professional judgment in responding to the clarification form. Clinical indicators are provided on the bottom of this form for your review. Please check appropriate box(s): [ x ] Acute Renal Failure (ARF) / Acute Kidney Injury (ALIYA) [ ] Acute on Chronic Renal Failure please specify Stage of CKD (see below) [ ] CKD without ARF/ALIYA please specify Stage of CKD [ ] Other diagnosis [ ] Unable to determine National Kidney Foundation Guidelines for CKD Staging Stage I Kidney damage with normal or increased GFR GFR > 90 Stage II Kidney damage with mildly decreased GFR GFR 60-89 Stage III Kidney damage with moderately decreased GFR GFR 30-59 Stage IV Kidney damage with severely decreased GFR GFR 16-29 Stage V Kidney failure GFR<15 ESRD End Stage Renal Disease On dialysis For continuity of documentation, please document condition throughout progress notes and discharge summary. Thank You. CLINICAL INDICATORS - SIGNS / SYMPTOMS / LABS BUN: 48 CR: 1.76 GFR: 38 (06/08) 28 1.19 60 (06/09) 13 1.16 62 (06/11) RISK FACTORS: ABDOMINAL WALL ABSCESS DM II HTN TREATMENT: IVF (NS 06/08 - PRESENT) SERIAL LABS THANK YOU! Nova (This form is maintained as a part of the permanent medical record) 2014 [employer]. All Rights Reserved Nova Bailey RN, BSN [email or web address] Office: [phone] [facility]
[2018-06-13] MEDS: Lorazepam 2 MG/ML VIAL SLOW IVP PRN ×2 (13:52→21:46)
[2018-06-13] MEDS: Ziprasidone 20 MG VIAL IM PRN (14:29)
--- NOTE | 2018-06-13 15:19 | EKG ---
Test Reason : Blood Pressure : / mmHG Vent. Rate : 093 BPM Atrial Rate : 093 BPM P-R Int : 192 ms QRS Dur : 086 ms QT Int : 356 ms P-R-T Axes : 000 -20 038 degrees QTc Int : 442 ms Poor data quality, interpretation may be adversely affected Normal sinus rhythm Normal ECG Confirmed by KERRY VALIENTE M.D. ([id number]), photo editor SHANTELLE PAIGE ([id number]) on 06/13/2018 3:18:54 PM Referred By: Confirmed By:KERRY VALIENTE M.D.
--- NOTE | 2018-06-13 15:34 | PDOC.PN ---
- Subjective Encounter Start Date: 06/13/18 Encounter Start Time: 15:32 Mr. Henning was seen today in follow-up of abdominal wall abscess. He does not have any complaints. - Objective Resuscitation Status - Order Detail: 06/09/18 13:04 Resuscitation Status Routine Resuscitation Status: DNAR: NO Resuscitation Discussed with: DNR form completed by (NICOLAS),pt has dementia MAR Reviewed: Yes Vital Signs & Weight: Vital Signs (12 hours) Temp Pulse Resp BP BP Pulse Ox 06/13/18 08:14 60 138/77 06/13/18 08:13 97 06/13/18 07:51 98.2 F 60 16 138/77 97 Weight Admit Weight 175 lb 7 oz Weight 175 lb 7 oz I&O: 06/12/18 06/13/18 06/14/18 06:59 06:59 06:59 Intake Total 1375 800 Output Total 1650 1200 Balance -275 -400 Result Diagrams: 06/09/18 06:19 06/11/18 07:11 Additional Labs: Accuchecks 06/13/18 06/12/18 06/12/18 05:12 21:26 16:12 POC Glucose 244 H 329 H 258 H Phys Exam - Physical Examination HEENT: PERRLA Respiratory: no wheezing, no rales, no rhonchi, clear to auscultation bilateral Cardiovascular: RRR, no significant murmur, no rub Gastrointestinal: soft, non-tender, no distention, positive bowel sounds + wound vac in place Musculoskeletal: no edema, pulses present Dx/Plan (1) Abdominal wall abscess Code(s): L02.211 - CUTANEOUS ABSCESS OF ABDOMINAL WALL Status: Acute Comment : s/p I&D in ER.on IV ABx (2) Alzheimer's dementia with behavioral disturbance Code(s): G30.9 - ALZHEIMER'S DISEASE, UNSPECIFIED; F02.81 - DEMENTIA IN OTH DISEASES CLASSD ELSWHR W BEHAVIORAL DISTURB Status: Chronic (3) DM2 (diabetes mellitus, type 2) Status: Chronic (4) HTN (hypertension) Code(s): I10 - ESSENTIAL (PRIMARY) HYPERTENSION Status: Chronic - Plan * Abdominal Wall Abscess- he is s/p I&D, and is clinically stable * He has been transitioned to oral antibiotics * He has advanced Alzheimer's Disease, and therefore [facility] is [facility] care * .
--- NOTE | 2018-06-13 16:10 | PDOC.EVN ---
Event Note - Event Note Event Note: Will hold discharge in order to arrange transportation to [facility].
[2018-06-14] MEDS: Vancomycin HCl 1 GM in Premix Bag 1 BAG IVPB SCH (00:27)
[2018-06-14] MEDS: Clindamycin 150 MG CAP PO SCH ×3 (00:28→17:40)
[2018-06-14] MEDS: Ziprasidone 20 MG VIAL IM PRN (00:42)
[2018-06-14] MEDS: Lorazepam 2 MG/ML VIAL SLOW IVP PRN ×2 (01:33→22:43)
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
[2018-06-14] MEDS: Haloperidol Lactate 5 MG/ML VIAL IM PRN ×2 (05:39→13:13)
[2018-06-14] MEDS: Ciprofloxacin 500 MG TAB PO SCH ×2 (05:41→20:08)
[2018-06-14] MEDS: Sodium Chloride 0.9% 1,000 ML IV SCH (08:29)
[2018-06-14] MEDS: Enoxaparin Sodium 40 MG/0.4 ML SYRINGE SC SCH (08:30)
[2018-06-14] MEDS: Famotidine/PF 20 mg/2ml Vial SLOW IVP SCH ×2 (08:30→22:09)
[2018-06-14] MEDS: Insulin Glargine 10 UNITS in Pre-Filled Syringe 1 EACH SC SCH ×2 (08:31→22:06)
[2018-06-14] MEDS: Saccharomyces boulardii 250 MG CAP PO SCH (08:31)
[2018-06-14] MEDS: Lisinopril 5 MG TAB PO SCH ×2 (08:31→20:08)
[2018-06-14] MEDS: HumaLOG 300 UNITS/3 ML VIAL SC PRN (11:02)
--- NOTE | 2018-06-14 12:39 | PDOC.PN ---
- Subjective Encounter Start Date: 06/14/18 Encounter Start Time: 12:37 Subjective: had agitation last night needing restraints but calm now -: does not know where he is or tell me his name - Objective Resuscitation Status - Order Detail: 06/09/18 13:04 Resuscitation Status Routine Resuscitation Status: DNAR: NO Resuscitation Discussed with: DNR form completed by (NICOLAS),pt has dementia MAR Reviewed: Yes Vital Signs & Weight: Vital Signs (12 hours) Temp Pulse Resp BP BP Pulse Ox 06/14/18 08:31 62 145/83 H 06/14/18 08:22 99 06/14/18 08:00 97.5 F L 62 18 145/83 H 99 Weight Admit Weight 175 lb 7 oz Weight 175 lb 7 oz I&O: 06/13/18 06/14/18 06/15/18 06:59 06:59 06:59 Intake Total 800 1950 Output Total 1200 Balance -400 1950 Result Diagrams: 06/09/18 06:19 06/11/18 07:11 Additional Labs: Accuchecks 06/14/18 06/14/18 06/14/18 11:01 05:21 04:31 POC Glucose 259 H 186 H 200 H 06/13/18 06/13/18 06/13/18 21:08 16:28 11:32 POC Glucose 184 H 140 H 218 H Phys Exam - Physical Examination Constitutional: NAD HEENT: PERRLA, moist MMs, sclera anicteric, oral pharynx no lesions Neck: no nodes, no JVD, supple, full ROM Respiratory: no wheezing, no rales, no rhonchi, clear to auscultation bilateral Cardiovascular: RRR, no significant murmur, no rub Gastrointestinal: soft, non-tender, no distention, positive bowel sounds Musculoskeletal: no edema, pulses present Neurological: non-focal, normal sensation, moves all 4 limbs Psychiatric: normal affect, A&O x 3 Skin: no rash Dx/Plan (1) Abdominal wall abscess Code(s): L02.211 - CUTANEOUS ABSCESS OF ABDOMINAL WALL Status: Acute Comment : s/p I&D in ER.on IV ABx (2) DM2 (diabetes mellitus, type 2) Status: Chronic (3) HTN (hypertension) Code(s): I10 - ESSENTIAL (PRIMARY) HYPERTENSION Status: Chronic (4) Alzheimer's dementia with behavioral disturbance Code(s): G30.9 - ALZHEIMER'S DISEASE, UNSPECIFIED; F02.81 - DEMENTIA IN OTH DISEASES CLASSD ELSWHR W BEHAVIORAL DISTURB Status: Chronic - Plan PT/OT, social professionals, DVT proph w/SCDs awaiting placement.Hd stable -: start aricpet and Namenda as he was taking at home.family didn't bring meds -: Will DC as no longer needs to be in hospital -: Behavioral disturbances associated w dementia & need dementia Unit -: DC IVF and IV ABx. on PO ABx now * . Review of Systems - Review of Systems Other: can not be obtained due to dementia - Medications/Allergies Allergies/Adverse Reactions: Allergies Allergy/AdvReac Type Severity Reaction Status Date / Time No Known Allergies Allergy Unverified 06/08/18 15:34 Medications: Current Medications Acetaminophen (Tylenol) 650 mg PO Q4H PRN PRN Reason: Headache/Fever/Mild Pain (1-3) Acetaminophen (Tylenol) 650 mg W[place] Q4H PRN PRN Reason: Headache/Fever/Mild Pain (1-3) Benzonatate (Tessalon) 100 mg PO Q6H PRN PRN Reason: Cough Bisacodyl (Dulcolax) 10 mg PO DAILYPRN PRN PRN Reason: Constipation Calcium Carbonate (Tums) 1,000 mg PO Q4H PRN PRN Reason: Heartburn or Indigestion Ciprofloxacin (Cipro) 500 mg PO 0600,2000 [facility] Last Admin: 06/14/18 05:41 Dose: 500 mg Clindamycin HCl (Cleocin) 300 mg PO Q8H [facility] Last Admin: 06/14/18 08:30 Dose: 300 mg Clonidine (Catapres) 0.1 mg PO Q4H PRN PRN Reason: SBP > 160____ Dextrose/Water (Dextrose 50%) 25 gm SLOW IVP PRN PRN PRN Reason: Hypoglycemia Donepezil HCl (Aricept) 10 mg PO HS [facility] Enoxaparin Sodium (Lovenox) 40 mg SC 0900 [facility] Last Admin: 06/14/18 08:30 Dose: 40 mg Famotidine (Pepcid) 20 mg SLOW IVP Q12HR [facility] Last Admin: 06/14/18 08:30 Dose: 20 mg Glucagon (Glucagon) 1 mg IM PRN PRN PRN Reason: Hypoglycemia Guaifenesin (Robitussin Sf) 200 mg PO Q4H PRN PRN Reason: Cough Haloperidol Lactate (Haldol) 2 mg IM Q4H PRN PRN Reason: Agitation Last Admin: 06/14/18 05:39 Dose: 2 mg Hydralazine HCl (Apresoline) 10 mg SLOW IVP Q4H PRN PRN Reason: SBP > 180 and HR < 70 Dextrose/Water (D5w) 1,000 mls @ 0 mls/hr IV .Q0M PRN PRN Reason: Hypoglycemia Insulin Glargine 10 units/ (Miscellaneous Medication) 0.1 mls @ 0 mls/hr SC HS [facility] Last Admin: 06/13/18 21:38 Dose: 0.1 mls Insulin Glargine 10 units/ (Miscellaneous Medication) 0.1 mls @ 0 mls/hr SC QAM [facility] Last Admin: 06/14/18 08:31 Dose: 0.1 mls Insulin Human Lispro (Humalog) 0 units SC .MODERATE SLIDING SC PRN PRN Reason: Moderate Correctional Scale Last Admin: 06/14/18 11:02 Dose: 6 unit Insulin Human Lispro (Humalog) 0 units SC .BEDTIME SLIDING SC PRN PRN Reason: Bedtime Correctional Scale Last Admin: 06/09/18 20:15 Dose: 5 unit Lisinopril (Zestril) 5 mg PO BID [facility] Last Admin: 06/14/18 08:31 Dose: 5 mg Lorazepam (Ativan) 1 mg SLOW IVP Q4H PRN PRN Reason: Anxiety/Agitation Last Admin: 06/14/18 01:33 Dose: 1 mg Memantine (Namenda) 5 mg PO BID [facility] Memantine (Namenda) 5 mg PO NOW [facility] Stop: 06/14/18 13:00 Last Admin: 06/14/18 11:02 Dose: 5 mg Morphine Sulfate (Morphine) 2 mg SLOW IVP Q4H PRN PRN Reason: Severe Pain (7-10) Last Admin: 06/11/18 13:14 Dose: 2 mg Nitroglycerin (Nitrostat) 0.4 mg SL Q5MIN PRN PRN Reason: Chest Pain Ondansetron HCl (Zofran) 4 mg IVP Q6H PRN PRN Reason: Nausea/Vomiting Saccharomyces Boulardii (Florastor) 250 mg PO DAILY [facility] Last Admin: 06/14/18 08:31 Dose: 250 mg Senna/Docusate Sodium (Senokot S) 2 tab PO BIDPRN PRN PRN Reason: Constipation Sodium Chloride (Flush - Normal Saline) 10 ml IVF PRN PRN PRN Reason: Saline Flush Sterile Water (Water For Injection) 1.2 ml FS Q4H PRN PRN Reason: GEODON RECONSTITUTION Last Admin: 06/11/18 17:57 Dose: 1.2 ml Trazodone HCl (Desyrel) 50 mg PO HSPRN PRN PRN Reason: Insomnia Last Admin: 06/10/18 21:20 Dose: 50 mg Ziprasidone (Geodon) 10 mg IM Q4H PRN PRN Reason: Agitation Last Admin: 06/14/18 00:42 Dose: 10 mg
[2018-06-14] MEDS: Donepezil HCl 10 MG TAB PO SCH (20:07)
[2018-06-15] MEDS: Clindamycin 150 MG CAP PO SCH ×3 (02:32→16:18)
[2018-06-15] MEDS: Ciprofloxacin 500 MG TAB PO SCH ×2 (05:40→20:04)
[2018-06-15] MEDS: HumaLOG 300 UNITS/3 ML VIAL SC PRN ×3 (07:04→16:18)
[2018-06-15] MEDS: Insulin Glargine 10 UNITS in Pre-Filled Syringe 1 EACH SC SCH ×2 (08:46→20:16)
[2018-06-15] MEDS: Lisinopril 5 MG TAB PO SCH ×2 (08:48→20:03)
[2018-06-15] MEDS: Saccharomyces boulardii 250 MG CAP PO SCH (08:48)
[2018-06-15] MEDS: Famotidine/PF 20 mg/2ml Vial SLOW IVP SCH ×2 (08:50→20:04)
[2018-06-15] MEDS: Enoxaparin Sodium 40 MG/0.4 ML SYRINGE SC SCH (08:51)
--- NOTE | 2018-06-15 12:10 | PDOC.PN ---
- Subjective Encounter Start Date: 06/15/18 Encounter Start Time: 12:07 -: old records requested/rev PT seen and examined, chart reviewed in its entirety. This is my frist visit with this patient notes reviewed followed up for abd wall abscess, s/p I&D adn Vac palcement no F/C, no n/V/d/c. demented with sundowning. approved for rehab, anticipate discharge ROS not obtanable - Objective Resuscitation Status - Order Detail: 06/09/18 13:04 Resuscitation Status Routine Resuscitation Status: DNAR: NO Resuscitation Discussed with: DNR form completed by (NICOLAS),pt has dementia MAR Reviewed: Yes Vital Signs & Weight: Vital Signs (12 hours) Temp Pulse Resp BP BP Pulse Ox 06/15/18 08:48 69 149/85 H 06/15/18 08:27 96 06/15/18 08:00 98.1 F 69 16 149/85 H 96 06/15/18 04:45 97.7 F 73 20 155/89 H 93 L Weight Admit Weight 175 lb 7 oz Weight 175 lb 7 oz I&O: 06/14/18 06/15/18 06/16/18 06:59 06:59 06:59 Intake Total 1950 1500 Balance 1950 1500 Result Diagrams: 06/09/18 06:19 06/11/18 07:11 Additional Labs: Accuchecks 06/15/18 06/14/18 06/14/18 11:40 20:47 16:25 POC Glucose 202 H 257 H 135 H Radiology Reviewed by me: Yes EKG Reviewed by me: Yes Phys Exam - Physical Examination Constitutional: NAD HEENT: PERRLA, moist MMs, sclera anicteric, oral pharynx no lesions Neck: no nodes, no JVD, supple, full ROM Respiratory: no wheezing, no rales, no rhonchi, clear to auscultation bilateral Cardiovascular: RRR, no significant murmur, no rub Gastrointestinal: soft, non-tender, no distention, positive bowel sounds Musculoskeletal: no edema, pulses present Neurological: non-focal, normal sensation, moves all 4 limbs Lymphatic: no nodes Psychiatric: normal affect, A&O x 3 Skin: no rash, normal turgor, cap refill <2 seconds Deviation from normal: VAC intact Dx/Plan (1) Abdominal wall abscess Code(s): L02.211 - CUTANEOUS ABSCESS OF ABDOMINAL WALL Status: Acute Comment : s/p I&D in ER.on IV ABx (2) Alzheimer's dementia with behavioral disturbance Code(s): G30.9 - ALZHEIMER'S DISEASE, UNSPECIFIED; F02.81 - DEMENTIA IN OTH DISEASES CLASSD ELSWHR W BEHAVIORAL DISTURB Status: Chronic (3) DM2 (diabetes mellitus, type 2) Status: Chronic Qualifiers: Diabetes mellitus detention insulin use: unspecified detention insulin use status Diabetes mellitus complication status: with unspecified complications Qualified Code(s): E11.8 - Type 2 diabetes mellitus with unspecified complications (4) HTN (hypertension) Code(s): I10 - ESSENTIAL (PRIMARY) HYPERTENSION Status: Chronic Qualifiers: Hypertension type: essential hypertension Qualified Code(s): I10 - Essential (primary) hypertension - Plan cont current plan of care, continue antibiotics, PT/OT * .
[2018-06-15] MEDS: Haloperidol Lactate 5 MG/ML VIAL IM PRN (15:02)
[2018-06-15] MEDS: Donepezil HCl 10 MG TAB PO SCH (20:03)
[2018-06-15] MEDS: Lorazepam 2 MG/ML VIAL SLOW IVP PRN (20:04)
[2018-06-16] MEDS: Clindamycin 150 MG CAP PO SCH ×3 (02:19→17:59)
[2018-06-16] MEDS: Ciprofloxacin 500 MG TAB PO SCH ×2 (06:30→20:25)
[2018-06-16] MEDS: Saccharomyces boulardii 250 MG CAP PO SCH (09:29)
[2018-06-16] MEDS: Lisinopril 5 MG TAB PO SCH ×2 (09:29→20:25)
[2018-06-16] MEDS: Famotidine/PF 20 mg/2ml Vial SLOW IVP SCH ×2 (09:29→20:25)
[2018-06-16] MEDS: Insulin Glargine 10 UNITS in Pre-Filled Syringe 1 EACH SC SCH ×2 (09:30→20:33)
[2018-06-16] MEDS: Enoxaparin Sodium 40 MG/0.4 ML SYRINGE SC SCH (09:30)
[2018-06-16] MEDS: Haloperidol Lactate 5 MG/ML VIAL IM PRN (14:55)
--- NOTE | 2018-06-16 17:03 | PDOC.PN ---
- Subjective Encounter Start Date: 06/16/18 Encounter Start Time: 16:00 Doing well. Playing cards with son. No complaints. - Objective Resuscitation Status - Order Detail: 06/09/18 13:04 Resuscitation Status Routine Resuscitation Status: DNAR: NO Resuscitation Discussed with: DNR form completed by (NICOLAS),pt has dementia Vital Signs & Weight: Vital Signs (12 hours) Temp Pulse Resp BP BP Pulse Ox 06/16/18 09:29 63 125/67 06/16/18 08:00 97.6 F 63 18 125/67 95 Weight Admit Weight 175 lb 7 oz Weight 175 lb 7 oz I&O: 06/15/18 06/16/18 06/17/18 06:59 06:59 06:59 Intake Total 1500 1000 Balance 1500 1000 Result Diagrams: 06/09/18 06:19 06/11/18 07:11 Additional Labs: Accuchecks 06/16/18 06/16/18 06/15/18 12:01 06:38 19:58 POC Glucose 253 H 186 H 234 H 06/15/18 04:48 POC Glucose 275 H Phys Exam - Physical Examination Constitutional: NAD Respiratory: no wheezing, no rales, no rhonchi, clear to auscultation bilateral Cardiovascular: RRR, no significant murmur, no rub Gastrointestinal: soft, non-tender, no distention, positive bowel sounds Musculoskeletal: no edema Psychiatric: normal affect Deviation from normal: Right lower abdominal wound with dry gauze packing. No erythema or drng. Dx/Plan (1) Abdominal wall abscess Code(s): L02.211 - CUTANEOUS ABSCESS OF ABDOMINAL WALL Status: Acute Comment : s/p I&D in ER.on IV ABx (2) Alzheimer's dementia with behavioral disturbance Code(s): G30.9 - ALZHEIMER'S DISEASE, UNSPECIFIED; F02.81 - DEMENTIA IN OTH DISEASES CLASSD ELSWHR W BEHAVIORAL DISTURB Status: Chronic (3) DM2 (diabetes mellitus, type 2) Status: Chronic Qualifiers: Diabetes mellitus senior care insulin use: unspecified senior care insulin use status Diabetes mellitus complication status: with unspecified complications Qualified Code(s): E11.8 - Type 2 diabetes mellitus with unspecified complications (4) HTN (hypertension) Code(s): I10 - ESSENTIAL (PRIMARY) HYPERTENSION Status: Chronic Qualifiers: Hypertension type: essential hypertension Qualified Code(s): I10 - Essential (primary) hypertension - Plan * Doing well today. Close to the time he has increased agitation each day. Still has a sitter for now. * Wound looks good. WC apparently concerned because it filled in rapidly and want surg to reassess. * Family actually wants to take patient home with them to [place]. Would like to consider that tomorrow as they think they can manage him better in the daytime hours for the actual trip. * Looks like the wound could be managed by family and he could go onto oral abx. Would like for WC to educate family on the dressing changes.
[2018-06-16] MEDS: HumaLOG 300 UNITS/3 ML VIAL SC PRN (18:01)
[2018-06-16] MEDS: Donepezil HCl 10 MG TAB PO SCH (20:25)
[2018-06-16] MEDS: traZODone HCl 50 MG TAB PO PRN (20:25)
[2018-06-17] MEDS: Clindamycin 150 MG CAP PO SCH ×3 (02:20→18:40)
[2018-06-17] MEDS: Ciprofloxacin 500 MG TAB PO SCH ×2 (03:46→21:13)
[2018-06-17] MEDS: Lorazepam 2 MG/ML VIAL SLOW IVP PRN (03:47)
[2018-06-17] MEDS: Enoxaparin Sodium 40 MG/0.4 ML SYRINGE SC SCH (10:35)
[2018-06-17] MEDS: Saccharomyces boulardii 250 MG CAP PO SCH (10:35)
[2018-06-17] MEDS: Lisinopril 5 MG TAB PO SCH ×2 (10:35→21:14)
[2018-06-17] MEDS: Insulin Glargine 10 UNITS in Pre-Filled Syringe 1 EACH SC SCH ×2 (10:41→21:15)
[2018-06-17] MEDS: Famotidine/PF 20 mg/2ml Vial SLOW IVP SCH ×2 (10:41→21:14)
--- NOTE | 2018-06-17 12:47 | PDOC.PN ---
- Subjective Encounter Start Date: 06/17/18 Encounter Start Time: 09:50 Patient is doing well. Eating and drinking well. Had a good night. - Objective Resuscitation Status - Order Detail: 06/09/18 13:04 Resuscitation Status Routine Resuscitation Status: DNAR: NO Resuscitation Discussed with: DNR form completed by (NICOLAS),pt has dementia Vital Signs & Weight: Vital Signs (12 hours) Temp Pulse Resp BP Pulse Ox 06/17/18 08:00 97.8 F 65 18 122/73 95 Weight Admit Weight 175 lb 7 oz Weight 175 lb 7 oz I&O: 06/16/18 06/17/18 06/18/18 06:59 06:59 06:59 Intake Total 1000 Balance 1000 Result Diagrams: 06/09/18 06:19 06/11/18 07:11 Additional Labs: Accuchecks 06/17/18 06/17/18 06/16/18 12:32 05:24 16:20 POC Glucose 307 H 149 H 244 H Phys Exam - Physical Examination Constitutional: NAD Sitting up and eating. Pleasant and conversant. Respiratory: no wheezing, no rales, no rhonchi, clear to auscultation bilateral Cardiovascular: RRR, no significant murmur Gastrointestinal: soft, non-tender, no distention, positive bowel sounds Right LQ incision dressed. Musculoskeletal: no edema Psychiatric: normal affect Dx/Plan (1) Abdominal wall abscess Code(s): L02.211 - CUTANEOUS ABSCESS OF ABDOMINAL WALL Status: Acute Comment : s/p I&D in ER. PO abx. No culture results. Dry packing per wound care. (2) Alzheimer's dementia with behavioral disturbance Code(s): G30.9 - ALZHEIMER'S DISEASE, UNSPECIFIED; F02.81 - DEMENTIA IN OTH DISEASES CLASSD ELSWHR W BEHAVIORAL DISTURB Status: Chronic Comment: Has had some sundowning. (3) DM2 (diabetes mellitus, type 2) Status: Chronic Qualifiers: Diabetes mellitus retirement insulin use: unspecified retirement insulin use status Diabetes mellitus complication status: with unspecified complications Qualified Code(s): E11.8 - Type 2 diabetes mellitus with unspecified complications Comment: Slightly labile blood sugars. (4) HTN (hypertension) Code(s): I10 - ESSENTIAL (PRIMARY) HYPERTENSION Status: Chronic Qualifiers: Hypertension type: essential hypertension Qualified Code(s): I10 - Essential (primary) hypertension Comment: Stable. - Plan * Doing very well from the perspective of the abscess. PO abx and dry dressing. * Discussed with patient's family again today. They will be drive to the facility in [place] today to see what exactly is needed to get him there. * DC the PRN's for agitation. * Scheduled Trazodone q hs. * Continue with sitter, but suspect that can be DC'd as soon as the family gets back. *
--- NOTE | 2018-06-17 13:33 | PDOC.EVN ---
Event Note - Event Note Event Note: Discussed with patient's son and DIL. They will be staying with the patient. He primarily needed the sitter because of elopement concern. Family can manage that effectively and are willing to do so. Will DC the sitter.
[2018-06-17] MEDS: HumaLOG 300 UNITS/3 ML VIAL SC PRN (14:20)
[2018-06-17] MEDS ORDERED: traZODone HCl 50 MG TAB PO SCH (21:00)
[2018-06-17] MEDS: Donepezil HCl 10 MG TAB PO SCH (21:12)
[2018-06-18] MEDS: Clindamycin 150 MG CAP PO SCH ×2 (01:16→09:15)
[2018-06-18] MEDS: Ciprofloxacin 500 MG TAB PO SCH (06:29)
[2018-06-18 08:40] VITALS: BP 124/76; TEMP 97.8
[2018-06-18] MEDS: Lisinopril 5 MG TAB PO SCH (09:14)
[2018-06-18] MEDS: Saccharomyces boulardii 250 MG CAP PO SCH (09:14)
[2018-06-18] MEDS: Insulin Glargine 10 UNITS in Pre-Filled Syringe 1 EACH SC SCH (09:15)
[2018-06-18] MEDS: Famotidine/PF 20 mg/2ml Vial SLOW IVP SCH (09:15)
[2018-06-18] MEDS: Enoxaparin Sodium 40 MG/0.4 ML SYRINGE SC SCH (09:15)
[2018-06-18] MEDS: HumaLOG 300 UNITS/3 ML VIAL SC PRN (13:13)
--- NOTE | 2018-06-18 13:46 | PDOC.PN ---
- Subjective Encounter Start Date: 06/18/18 Encounter Start Time: 10:15 Doing well. No complaints. Family members present. - Objective Resuscitation Status - Order Detail: 06/09/18 13:04 Resuscitation Status Routine Resuscitation Status: DNAR: NO Resuscitation Discussed with: DNR form completed by (NICOLAS),pt has dementia Vital Signs & Weight: Vital Signs (12 hours) Temp Pulse Resp BP Pulse Ox 06/18/18 09:14 63 06/18/18 08:37 97.8 F 63 16 124/76 94 L 06/18/18 08:00 94 L Weight Admit Weight 175 lb 7 oz Weight 175 lb 7 oz I&O: 06/17/18 06/18/18 06/19/18 06:59 06:59 06:59 Intake Total 480 Balance 480 Result Diagrams: 06/09/18 06:19 06/11/18 07:11 Additional Labs: Accuchecks 06/18/18 06/17/18 06/17/18 04:47 21:16 17:27 POC Glucose 263 H 270 H 78 Phys Exam - Physical Examination Constitutional: NAD Respiratory: no wheezing, no rales, no rhonchi, clear to auscultation bilateral Cardiovascular: RRR, no significant murmur Gastrointestinal: soft, non-tender, no distention, positive bowel sounds Musculoskeletal: no edema Psychiatric: normal affect Deviation from normal: Wound vac on right lower abdomen. Dx/Plan (1) Abdominal wall abscess Code(s): L02.211 - CUTANEOUS ABSCESS OF ABDOMINAL WALL Status: Acute Comment : s/p I&D in ER. PO abx. No culture results. Dry packing per wound care. (2) Alzheimer's dementia with behavioral disturbance Code(s): G30.9 - ALZHEIMER'S DISEASE, UNSPECIFIED; F02.81 - DEMENTIA IN OTH DISEASES CLASSD ELSWHR W BEHAVIORAL DISTURB Status: Chronic Comment: Has had some sundowning. (3) DM2 (diabetes mellitus, type 2) Status: Chronic Qualifiers: Diabetes mellitus intermediate project manager insulin use: unspecified intermediate project manager insulin use status Diabetes mellitus complication status: with unspecified complications Qualified Code(s): E11.8 - Type 2 diabetes mellitus with unspecified complications Comment: Slightly labile blood sugars. (4) HTN (hypertension) Code(s): I10 - ESSENTIAL (PRIMARY) HYPERTENSION Status: Chronic Qualifiers: Hypertension type: essential hypertension Qualified Code(s): I10 - Essential (primary) hypertension Comment: Stable. - Plan * Has done well with family. * Sitter discontinued yesterday. * Plan to move to facility in [place], but awaiting approval to send him. * Family plans to transport him there themselves.
--- NOTE | 2018-06-20 08:27 | DIS ---
DATE OF ADMISSION: 06/08/2018 DATE OF DISCHARGE: 06/18/2018 DISCHARGE DIAGNOSES: 1. Abdominal wall abscess. 2. Alzheimer's dementia with behavioral disturbance. 3. Diabetes mellitus. 4. Hypertension. HISTORY OF PRESENT ILLNESS: This patient is a 68-year-old male, who has Alzheimer's type dementia. He went to [facility] complaining of evidence of infection. He had a CT scan which revealed an abscess of 14 x 16 cm in right lower quadrant. The patient was started on broad-spectrum antibiotics, incision and drainage by Dr. Sher in the emergency department, and . Patient was continued in the hospital with IV antibiotics initially . The patient would not be able to return to an independent living type setting. His family that involved of his son and [id number] came down from [place], stayed with the patient, worked with the business case analyst and found placement for him at a facility in [place], where his apparently is. However, the patient had to be without restraints or sitters for 24 hours. The patient was easily managed without any restraints and with his family around, did not require a sitter. So, once those criteria were met, the patient was accepted and the family agreed to drive the patient to that facility in order to continue to direct the patient as needed. DISPOSITION: Please see the progress note on the day of discharge for physical exam. Otherwise, the patient will have an activity as tolerated. He will be on a diabetic diet. He will have occupational therapy, physical therapy, and wound care. DISCHARGE MEDICATIONS: He will be on, 1. Cipro 500 p.o. b.i.d. 2. Clindamycin 300 mg q.8 hours. 3. Continue his usual insulin glargine 10 units at bedtime and a.m. 4. Lisinopril 5 mg b.i.d. 5. Florastor 250 mg daily. 6. Tylenol p.r.n. 7. Tessalon Perles p.r.n. 8. Dulcolax p.r.n. 9. Catapres 0.1 q.4 hours p.r.n. systolic greater than 160. 10. Aricept 10 mg at bedtime. 11. Namenda 5 mg b.i.d. 12. Trazodone 50 mg at bedtime p.r.n. 13. Geodon p.r.n. 14. Desyrel 50 mg at bedtime. FOLLOWUP: He will have followup at the facility in [place]. He will continue to have wound care there with wet-to-dry dressings. Job ID: [id number]
== END 2018-06-18 16:03 | DRG 580 ==
LOC: ERS 15:00 → T4-B 17:47
PROVIDERS: ADMIT Internal Medicine; ATTEND Internal Medicine
PROC: 0W9F0ZZ Drainage of Abdominal Wall, Open Approach (ICD-10-PCS; principal; 2018-06-08)
DX: L02.211 Cutaneous abscess of abdominal wall (principal); F02.81 Dementia in other diseases classified elsewhere, unspecified severity, with behavioral disturbance; N17.9 Acute kidney failure, unspecified; G30.9 Alzheimer's disease, unspecified; E11.9 Type 2 diabetes mellitus without complications; Z79.4 Long term (current) use of insulin; Z79.84 Long term (current) use of oral hypoglycemic drugs; F17.210 Nicotine dependence, cigarettes, uncomplicated; Z79.811 Long term (current) use of aromatase inhibitors; Z66 Do not resuscitate
CPT/HCPCS: 36415; 36416; 80048; 80202; 83605; 85025; 90471; 90670; 93005; 96365; 96372; 96375; A4216; G0009; G8978-GP-CJ; G8979-GP-CJ; G8980-GP-CJ; G8987-GO-CI; G8988-GO-CI; G8989-GO-CI; J1630; J1650; J2001; J2060; J2270; J2543; J3370; J3486; J7050; S0028